=== PATIENT | female | born 1985 | race Caucasian/White ===

== ENCOUNTER 2018-12-22 09:39 | Emergency (ER) | payer OTHER ==
[~2018-12-22] VITALS: Ht 162.6 cm; Wt 67.1 kg
[~2018-12-22 09:39] MED LIST: CLARITIN10 MG PO; GILTUS PO; PROVENTIL HFA6.7 GM IH
[2018-12-22] MEDS ORDERED: VALIUM PO (10:42)
== END 2018-12-22 11:03 | disposition home or self-care (01) ==
LOC: ER 09:39
DX: M54.5 Low back pain (principal)

== ENCOUNTER 2022-04-05 21:53 | Emergency (ER) | payer OTHER ==
[~2022-04-05] VITALS: Ht 160 cm; Wt 63.5 kg
[~2022-04-05 21:53] MED LIST changes: +VALIUM PO
[2022-04-05] MEDS ORDERED: MONTELUKAST SOD10 MG PO (22:20)
[2022-04-06] MEDS ORDERED: LEVSIN/SL0.125 MG SL (04:43)
[2022-04-06] MEDS ORDERED: PEPCID40 MG PO (04:43)
== END 2022-04-06 04:59 ==
LOC: ER 21:53
DX: R10.13 Epigastric pain (principal)

== ENCOUNTER 2024-09-14 11:45 | Inpatient (IN) | payer OTHER ==
[~2024-09-14] VITALS: Ht 91.4 cm; Wt 68.0 kg
[~2024-09-14 11:45] MED LIST changes: +LEVSIN/SL0.125 MG SL; +MONTELUKAST SOD10 MG PO; +PEPCID40 MG PO
[2024-09-14 16:20] VITALS: BP 126/80
[2024-09-20 09:03] LABS: RH POSITIVE
[2024-09-20] MEDS ORDERED: CEFTRIAXONE SODIUM 2,000 MG VIAL ONE (18:43)
[2024-09-20] MEDS ORDERED: METRONIDAZOLE/SODIUM CHLORIDE 500 MG/100 ML PIGGYBACK IV ONE ×2 (18:43→20:30)
[2024-09-20] MEDS ORDERED: POVIDONE-IODINE 118 ML BOTT TOP ONE (18:43)
[2024-09-20] MEDS ORDERED: CHLORHEXIDINE GLUCONATE 120 ML BOTTLE TOP ONE ×3 (18:51→20:45)
[2024-09-20] MEDS ORDERED: THROMBIN,HU/FIBRINOGEN/CALCIUM 10 ML SYRINGE TOP ONE (19:23)
[2024-09-20] MEDS ORDERED: VISTASEAL DUAL APPICATOR 1 EACH APPL TOP ONE (19:23)
[2024-09-20] MEDS ORDERED: CEFTRIAXONE SODIUM 2,000 MG VIAL IV ONE (20:30)
[2024-09-20] MEDS ORDERED: RINGERS SOLUTION,LACTATED 1,000 ML IV SCH (21:29)
[2024-09-20] MEDS ORDERED: ONDANSETRON HCL 2 MG/ML VIAL IV SCH (21:29)
[2024-09-20] MEDS ORDERED: ACETAMINOPHEN 325 MG TABLET PO SCH (21:30)
[2024-09-20] MEDS ORDERED: GABAPENTIN 100 MG CAPSULE PO SCH (21:31)
[2024-09-20] MEDS ORDERED: HYOSCYAMINE SULFATE 0.125 MG TAB.SUBL SL PRN (21:45)
[2024-09-20] MEDS ORDERED: SUGAMMADEX SODIUM 200 MG/2 ML VIAL IV ONE (22:00)
[2024-09-21] MEDS ORDERED: MORPHINE SULFATE 5 MG/ML VIAL IV ONE
[2024-09-21 00:22] LABS: BASO % 0.3 % (0.1-1.2); EOS # 0.04 (0.04-0.54); EOS % 0.3 % (0.7-7.0); HEMATOCRIT 36.4 % (34.1-44.9); HEMOGLOBIN 12.3 g/dL (11.2-15.7); LYMPH # 2.33 (1.18-3.74); LYMPH % 16.5 % (19.3-53.1); MEAN CORPUSCULAR HEMOGLOBIN 29.4 pg (25.6-32.2); MONO # 0.72 (0.24-0.82); MONO % 5.1 % (4.7-12.5); NEUT # 10.92 (1.56-6.13); NEUT % 77.3 % (34.0-71.1); PLATELET COUNT 192 K/uL (163-369); RED BLOOD COUNT 4.18 M/uL (3.93-5.22); RED CELL DISTRIBUTION WIDTH 12.6 % (11.6-14.4)
[2024-09-21] MEDS ORDERED: MORPHINE SULFATE 4 MG/ML VIAL IV ONE (00:30)
[2024-09-21 04:07] VITALS: BP 126/80
[2024-09-21 06:11] LABS: BASO % 0.3 % (0.1-1.2); EOS # 0.01 (0.04-0.54); EOS % 0.1 % (0.7-7.0); HEMATOCRIT 36.3 % (34.1-44.9); HEMOGLOBIN 12.3 g/dL (11.2-15.7); LYMPH % 18.5 % (19.3-53.1); MEAN CORPUSCULAR HEMOGLOBIN 30.1 pg (25.6-32.2); MONO # 0.64 (0.24-0.82); MONO % 5.4 % (4.7-12.5); NEUT # 8.99 (1.56-6.13); NEUT % 75.4 % (34.0-71.1); PLATELET COUNT 192 K/uL (163-369); RED BLOOD COUNT 4.08 M/uL (3.93-5.22); RED CELL DISTRIBUTION WIDTH 12.5 % (11.6-14.4)
[2024-09-21 06:50] LABS: CALCIUM 8.5 mg/dL (8.5-10.1); CREATININE SERUM 0.64 mg/dL (0.55-1.02); GFR 103.85; POTASSIUM 3.91 mEq/L (3.5-5.1)
[2024-09-21 10:47] VITALS: BP 116/77
[2024-09-21 11:08] LABS: BASO % 0.4 % (0.1-1.2); EOS # 0.02 (0.04-0.54); EOS % 0.2 % (0.7-7.0); HEMATOCRIT 38.4 % (34.1-44.9); HEMOGLOBIN 12.8 g/dL (11.2-15.7); LYMPH # 1.89 (1.18-3.74); LYMPH % 16.8 % (19.3-53.1); MONO # 0.48 (0.24-0.82); MONO % 4.3 % (4.7-12.5); NEUT # 8.77 (1.56-6.13); NEUT % 77.9 % (34.0-71.1); PLATELET COUNT 187 K/uL (163-369); RED BLOOD COUNT 4.42 M/uL (3.93-5.22); RED CELL DISTRIBUTION WIDTH 12.4 % (11.6-14.4)
[2024-09-21 16:00] VITALS: BP 124/83
[2024-09-21] MEDS ORDERED: SIMETHICONE 125 MG CAPSULE PO SCH (17:00)
[2024-09-21] MEDS ORDERED: LEVALBUTEROL HCL 0.63 MG/3 ML SOLUTION IH SCH (17:00)
[2024-09-21] MEDS ORDERED: METOCLOPRAMIDE HCL 5 MG/ML VIAL IV SCH (21:00)
[2024-09-21] MEDS ORDERED: BUDESONIDE 0.25 MG/2 ML AMPUL.NEB IH SCH (21:00)
[2024-09-21] MEDS ORDERED: MONTELUKAST SODIUM 10 MG TABLET PO SCH ×2 (21:00)
[2024-09-22 01:13] VITALS: BP 114/75
[2024-09-22 10:05] VITALS: BP 102/73
[2024-09-22] MEDS ORDERED: ENOXAPARIN SODIUM 40 MG/0.4 ML SYRINGE SUBCUTANEO SCH (10:10)
[2024-09-22 11:32] LABS: BASO % 0.4 % (0.1-1.2); EOS # 0.14 (0.04-0.54); EOS % 1.3 % (0.7-7.0); HEMATOCRIT 38.7 % (34.1-44.9); HEMOGLOBIN 12.9 g/dL (11.2-15.7); LYMPH # 1.87 (1.18-3.74); LYMPH % 16.9 % (19.3-53.1); MEAN CORPUSCULAR HEMOGLOBIN 29.1 pg (25.6-32.2); MONO # 0.57 (0.24-0.82); MONO % 5.2 % (4.7-12.5); NEUT # 8.38 (1.56-6.13); NEUT % 75.8 % (34.0-71.1); PLATELET COUNT 217 K/uL (163-369); RED BLOOD COUNT 4.44 M/uL (3.93-5.22); RED CELL DISTRIBUTION WIDTH 12.5 % (11.6-14.4)
[2024-09-22 12:48] LABS: CALCIUM 9.3 mg/dL (8.5-10.1); CREATININE SERUM 0.66 mg/dL (0.55-1.02); GFR 100.23; MAGNESIUM 1.7 mg/dL (1.8-2.4); PHOSPHOROUS 2.7 mg/dL (2.5-4.9); POTASSIUM 3.28 mEq/L (3.5-5.1)
[2024-09-22] MEDS ORDERED: POTASSIUM CHLORIDE 20MEQ/100ML H2O PB IV NR (15:15)
[2024-09-22] MEDS ORDERED: MAGNESIUM SULFATE IN WATER 50 ML IV NR (15:15)
[2024-09-22 16:32] VITALS: BP 106/72
[2024-09-23 01:40] VITALS: BP 100/62
[2024-09-23 08:00] VITALS: BP 102/72
[2024-09-23] MEDS ORDERED: POTASSIUM CHLORIDE 8 MEQ TABLET PO SCH (10:30)
== END 2024-09-23 12:56 | disposition home or self-care (01) | DRG 743 ==
LOC: SURH 09-20 07:00 → O/R 09-20 21:38 → OB/GYN 09-20 22:16
PROVIDERS: Internal Medicine Geriatric Medicine; Surgery; Urology; ADMIT Obstetrics & Gynecology Gynecology; ATTEND Obstetrics & Gynecology Gynecology
PROC: 0TNB4ZZ Release Bladder, Percutaneous Endoscopic Approach (ICD-10-PCS; 2024-09-20)
PROC: 0DBW4ZZ Excision of Peritoneum, Percutaneous Endoscopic Approach (ICD-10-PCS; 2024-09-20)
PROC: 0DNN4ZZ Release Sigmoid Colon, Percutaneous Endoscopic Approach (ICD-10-PCS; 2024-09-20)
PROC: 0DTJ4ZZ Resection of Appendix, Percutaneous Endoscopic Approach (ICD-10-PCS; 2024-09-20)
PROC: 0T788DZ Dilation of Bilateral Ureters with Intraluminal Device, Via Natural or Artificial Opening Endoscopic (ICD-10-PCS; 2024-09-20)
PROC: 0UT94ZZ Resection of Uterus, Percutaneous Endoscopic Approach (ICD-10-PCS; principal; 2024-09-20 07:00)
PROC: 0UN14ZZ Release Left Ovary, Percutaneous Endoscopic Approach (ICD-10-PCS; 2024-09-20 07:00)
PROC: 0DNW4ZZ Release Peritoneum, Percutaneous Endoscopic Approach (ICD-10-PCS; 2024-09-20 07:00)
PROC: 3E0F7GC Introduction of Other Therapeutic Substance into Respiratory Tract, Via Natural or Artificial Opening (ICD-10-PCS; 2024-09-21)
DX: D25.9 Leiomyoma of uterus, unspecified (principal); N80.559 Endometriosis of other parts of the colon, unspecified depth; N94.5 Secondary dysmenorrhea; Z12.11 Encounter for screening for malignant neoplasm of colon; N80.312 Deep endometriosis of the anterior cul-de-sac; R10.9 Unspecified abdominal pain; S39.012A Strain of muscle, fascia and tendon of lower back, initial encounter; J45.30 Mild persistent asthma, uncomplicated; N80.203 Endometriosis of bilateral fallopian tubes, unspecified depth; N80.8 Other endometriosis; N80.319 Endometriosis of the anterior cul-de-sac, unspecified depth

== ENCOUNTER 2024-10-02 19:50 | Emergency (ER) | payer OTHER ==
[~2024-10-02] VITALS: Ht 160 cm; Wt 68.0 kg
[2024-10-02] MEDS ORDERED: DEXAMETHASONE SODIUM PHOSP/PF 10 MG/ML VIAL IV ONE (23:15)
[2024-10-02] MEDS ORDERED: DIPHENHYDRAMINE HCL 50 MG/ML VIAL 1ML IV ONE (23:15)
[2024-10-02] MEDS ORDERED: FAMOtidine 10 MG/ML (4ML VIAL) IV ONE (23:15)
[2024-10-02] MEDS ORDERED: TRAMADOL HCL 50 MG TABLET PO ONE (23:45)
[2024-10-03] MEDS ORDERED: ATARAX50 MG PO (00:17)
[2024-10-03] MEDS ORDERED: ZYRTEC10 MG PO (00:17)
== END 2024-10-03 01:54 | disposition home or self-care (01) ==
LOC: ER 19:50
DX: T78.40XA Allergy, unspecified, initial encounter (principal); R21 Rash and other nonspecific skin eruption; Z88.6 Allergy status to analgesic agent; Z91.013 Allergy to seafood; Z91.041 Radiographic dye allergy status

== ENCOUNTER 2024-10-05 13:42 | Emergency (ER) | payer OTHER ==
[~2024-10-05] VITALS: Ht 160 cm; Wt 68.0 kg
[~2024-10-05 13:42] MED LIST changes: +ATARAX50 MG PO; +ZYRTEC10 MG PO
[2024-10-05] MEDS ORDERED: DEXAMETHASONE SODIUM PHOSPHATE 4 MG/ML VIAL IM ONE (14:45)
[2024-10-05] MEDS ORDERED: TRAMADOL HCL 50 MG TABLET PO ONE (14:45)
[2024-10-05 14:56] LABS: BASO % 0.5 % (0.1-1.2); EOS # 0.13 (0.04-0.54); EOS % 1.3 % (0.7-7.0); LYMPH # 3.17 (1.18-3.74); LYMPH % 32.0 % (19.3-53.1); MEAN PLATELET VOLUME 9.60 fl (9.4-12.4); MONO # 0.43 (0.24-0.82); MONO % 4.3 % (4.7-12.5); NEUT # 6.09 (1.56-6.13); NEUT % 61.4 % (34.0-71.1); RED CELL DISTRIBUTION WIDTH 12.6 % (11.6-14.4)
[2024-10-05 15:23] LABS: ALT/SGPT 56.0 U/L (12-78); AST/SGOT 13.0 U/L (15-37); BILIRUBIN TOTAL 0.5 mg/dL (0.3-1.2); BUN CREA RATIO 22.0 (7.0-25.0); CREATININE SERUM 0.65 mg/dL (0.55-1.02); GFR 102.01; GLOBULINA 3.8 G/DL (2.4-3.5); GLUCOSE FASTING 91.0 mg/dL (65-100); OSMOLALITY SERUM 281.0 MOSM/KG (275-295)
[2024-10-05] MEDS ORDERED: DIPHENHYDRAMINE HCL 50 MG/ML VIAL 1ML IV ONE (16:45)
[2024-10-05 20:39] VITALS: BP 125/80; O2SAT 98
== END 2024-10-05 20:41 | disposition home or self-care (01) ==
LOC: ER 14:00
PROVIDERS: Preventive Medicine Public Health & General Preventive Medicine
DX: M94.0 Chondrocostal junction syndrome [Tietze] (principal); R07.89 Other chest pain; Z88.8 Allergy status to other drugs, medicaments and biological substances; Z87.09 Personal history of other diseases of the respiratory system; Z88.6 Allergy status to analgesic agent; Z91.013 Allergy to seafood